=== PATIENT | male | born 1980 | race Caucasian/White ===

== ENCOUNTER 2020-10-17 12:11 | Emergency (ER) | payer BC ==
[2020-10-17] MEDS ORDERED: Sodium Chloride 0.9% 1,000 ML IV ONE (12:19)
[2020-10-17] MEDS ORDERED: Sodium Chloride 0.9% 10 ML Syringe FLUSH PRN (12:20)
[2020-10-17] MEDS ORDERED: Sodium Chloride 0.9% 2.5 ML Syringe FLUSH PRN (12:20)
[2020-10-17] MEDS ORDERED: Adenosine 6 MG/2 ML SDV IVPUSH ONE ×3 (12:29→12:55)
--- NOTE | 2020-10-17 12:29 | EDM.PDOC ---
ED HPI GENERAL MEDICAL PROBLEM - General Chief Complaint: Cardiovascular Problem Stated Complaint: CHEST PAIN Time Seen by Provider: 10/17/20 12:16 Source of Information: Reports: Patient History Limitations: Reports: No Limitations - History of Present Illness INITIAL COMMENTS - FREE TEXT/NARRATIVE: 40-year-old male past medical history hypertension presents for rapid heartbeat. Patient notes that he has been having some palpitations over the last couple of weeks and recently had his medication switched from lisinopril and amlodipine to metoprolol. He had been doing better but today experienced rapid heart rate. He laid down and lifted his legs and symptoms resolved. Symptoms unfortunately came back shortly afterwards and he was unable to get it stopped on his own. He does endorse a mild pain sensation to his left anterior ribs as well as some mild shortness of breath associated with a rapid heart rate. He denies lower extremity swelling or pain. He notes that he has follow-up with a lift slab operator coming up in the next week. No prior history of SVT left chest,ribs Pain Score (Numeric/FACES): 1 - Related Data Allergies Allergy/AdvReac Type Severity Reaction Status Date / Time No Known Allergies Allergy Verified 10/17/20 12:36 Home Meds: Home Meds Metoprolol Succinate 100 mg PO DAILY 10/17/20 [History] Metoprolol Tartrate 25 mg PO Q8H PRN #20 tablet 10/17/20 [Rx] ED ROS GENERAL - Review of Systems Review Of Systems: Comprehensive ROS is negative, except as noted in HPI. ED EXAM, GENERAL - Physical Exam Exam: See Below General Appearance: Alert, WD/WN, No Apparent Distress Throat/Mouth: Normal Voice, No Airway Compromise Head: Atraumatic, Normocephalic Neck: Normal Inspection Respiratory/Chest: No Respiratory Distress, Lungs Clear, Normal Breath Sounds, No Accessory Muscle Use Cardiovascular: Normal Peripheral Pulses, No Edema, Tachycardia Extremities: Normal Inspection Neurological: Alert Psychiatric: Normal Affect, Normal Mood Skin Exam: Warm, Dry, Intact, Normal Color #1 Interpretation EKG Date: 10/17/20 Time: 12:15 Rhythm: Other (SVT) Rate (Beats/Min): 184 Andrews: Normal QRS: Normal ST-T: Normal QT: Normal Comparison: NA - No Prior EKG EKG Interpretation Comments: SVT #2 Interpretation EKG Date: 10/17/20 Time: 12:47 Rhythm: NSR Rate (Beats/Min): 114 Andrews: Normal P-Wave: Present QRS: Normal ST-T: Normal QT: Normal WA/PQ Interval: 168 Comparison: Change From Previous EKG EKG Interpretation Comments: sinus tachycardia without ischemic changes #3 Interpretation EKG Date: 10/17/20 Time: 12:58 Rhythm: Other (sinus tach) Rate (Beats/Min): 112 Andrews: Normal P-Wave: Present QRS: Normal ST-T: Normal QT: Normal WA/PQ Interval: 167 Comparison: Change From Previous EKG EKG Interpretation Comments: sinus tachycardia #4 Interpretation EKG Date: 10/17/20 Time: 13:06 Rhythm: NSR Rate (Beats/Min): 101 Andrews: Normal P-Wave: Present QRS: Normal ST-T: Normal QT: Normal WA/PQ Interval: 182 EKG Interpretation Comments: Sinus tachycardia no ischemic changes Course - Vital Signs Last Recorded V/S: Last Vital Signs Temp 97 F 10/17/20 12:33 Pulse 111 H 10/17/20 12:59 Resp 17 10/17/20 12:59 BP 150/93 H 10/17/20 12:59 Pulse Ox 96 10/17/20 12:59 - Orders/Labs/Meds Orders: Active Orders 24 hr Category Date Time Status Cardiac Monitoring [RC] . DIRECTED Care 10/17/20 12:20 Active EKG 12 Lead [EKG Documentation Completion] [RC] STAT Care 10/17/20 13:11 Active EKG 12 Lead [EKG Documentation Completion] [RC] STAT Care 10/17/20 13:12 Active EKG 12 Lead [EKG Documentation Completion] [RC] STAT Care 10/17/20 13:12 Active Sodium Chloride 0.9% [Saline Flush] Med 10/17/20 12:20 Active 10 ml FLUSH ASDIRECTED PRN Sodium Chloride 0.9% [Saline Flush] Med 10/17/20 12:20 Active 2.5 ml FLUSH ASDIRECTED PRN Saline Lock Insert [OM.PC] Stat Oth 10/17/20 12:20 Ordered Medication Orders Sodium Chloride (Sodium Chloride 0.9% 10 Ml Syringe) 10 ml FLUSH ASDIRECTED PRN PRN Reason: Keep Vein Open Last Admin: 10/17/20 12:33 Dose: 10 ml Documented by: [id number] Sodium Chloride (Sodium Chloride 0.9% 2.5 Ml Syringe) 2.5 ml FLUSH ASDIRECTED PRN PRN Reason: Keep Vein Open Last Admin: 10/17/20 12:34 Dose: 2.5 ml Documented by: [id number] Labs: Laboratory Tests 10/17/20 10/17/20 Range/Units 12:22 12:22 WBC 8.93 (4.0-11.0) K/uL RBC 5.51 (4.50-5.90) M/uL Hgb 16.6 (13.0-17.0) g/dL Hct 47.4 (38.0-50.0) % MCV 86.0 (80.0-98.0) fL MCH 30.1 (27.0-32.0) pg MCHC 35.0 (31.0-37.0) g/dL RDW Std Deviation 40.2 (28.0-62.0) fl RDW Coeff of Yenny 13 (11.0-15.0) % Plt Count 314 (150-400) K/uL MPV 9.70 (7.40-12.00) fL Neut % (Auto) 46.3 L (48.0-80.0) % Lymph % (Auto) 35.6 (16.0-40.0) % Kings % (Auto) 12.9 (0.0-15.0) % Eos % (Auto) 4.8 (0.0-7.0) % Baso % (Auto) 0.4 (0.0-1.5) % Neut # (Auto) 4.1 (1.4-5.7) K/uL Lymph # (Auto) 3.2 H (0.6-2.4) K/uL Kings # (Auto) 1.2 H (0.0-0.8) K/uL Eos # (Auto) 0.4 (0.0-0.7) K/uL Baso # (Auto) 0.0 (0.0-0.1) K/uL Nucleated RBC % 0.0 /100WBC Nucleated RBCs # 0 K/uL Sodium 137 (136-148) mmol/L Potassium 3.7 (3.5-5.1) mmol/L Chloride 103 (98-107) mmol/L Carbon Dioxide 25.1 (21.0-32.0) mmol/L BUN 11 (7.0-18.0) mg/dL Creatinine 1.2 (0.8-1.3) mg/dL Est Cr Clr Drug Dosing 89.81 mL/min Estimated GFR (MDRD) > 60.0 ml/min Glucose 109 H (74-106) mg/dL Calcium 8.9 (8.5-10.1) mg/dL Total Bilirubin 1.2 H (0.2-1.0) mg/dL AST 38 H (15-37) IU/L ALT 63 (14-63) IU/L Alkaline Phosphatase 96 (46-116) U/L Troponin I < 0.050 (0.000-0.056) ng/mL Total Protein 7.9 (6.4-8.2) g/dL Albumin 4.2 (3.4-5.0) g/dL Globulin 3.7 (2.6-4.0) g/dL Albumin/Globulin Ratio 1.1 (0.9-1.6) TSH 3rd Generation 2.32 (0.36-3.74) uIU/mL Meds: Medications Generic Name Dose Route Start Last Admin Trade Name Freq PRN Reason Stop Dose Admin Sodium Chloride 10 ml 10/17/20 12:20 10/17/20 12:33 Sodium Chloride 0.9% 10 Ml Syringe FLUSH 10 ml ASDIRECTED PRN Administration Keep Vein Open Sodium Chloride 2.5 ml 10/17/20 12:20 10/17/20 12:34 Sodium Chloride 0.9% 2.5 Ml Syringe FLUSH 2.5 ml ASDIRECTED PRN Administration Keep Vein Open Discontinued Medications Generic Name Dose Route Start Last Admin Trade Name Freq PRN Reason Stop Dose Admin Adenosine 6 mg 10/17/20 12:29 10/17/20 12:39 Adenosine 6 Mg/2 Ml Sdv IVPUSH 10/17/20 12:30 6 mg NOW ONE Administration Adenosine 12 mg 10/17/20 12:29 10/17/20 12:44 Adenosine 6 Mg/2 Ml Sdv IVPUSH 10/17/20 12:30 12 mg NOW ONE Administration Adenosine Confirm 10/17/20 12:31 10/17/20 12:48 Adenosine 6 Mg/2 Ml Sdv Administered 10/17/20 12:32 Not Given Dose 12 mg .ROUTE .STK-MED ONE Adenosine 12 mg 10/17/20 12:55 10/17/20 12:57 Adenosine 6 Mg/2 Ml Sdv IVPUSH 10/17/20 12:56 12 mg NOW ONE Administration Sodium Chloride 1,000 mls @ 999 mls/hr 10/17/20 12:19 10/17/20 12:32 Normal Saline IV 10/17/20 13:19 999 mls/hr STAT ONE Administration Metoprolol Tartrate 5 mg 10/17/20 12:44 10/17/20 12:50 Metoprolol Tartrate 5 Mg/5 Ml Sdv IVPUSH 10/17/20 12:45 5 mg ONETIME ONE Administration - Re-Assessments/Exams Free Text/Narrative Re-Assessment/Exam: 10/17/20 12:28 Patient's EKG and symptoms are most consistent with supraventricular tachycardia. I trialed a Valsalva maneuver which was unsuccessful. We will give adenosine and reassess. 10/17/20 12:48 Patient underwent chemical cardioversion with adenosine 6 mg with return to sinus tachycardia to 120s. Unfortunately roughly 30 seconds after cardioversion patient went back into SVT with rates in the 180s. Adenosine 12 mg was given and patient went back into sinus tachycardia 120s. Will give 5 mg of metoprolol and continue IV fluid bolus. 10/17/20 12:55 Patient lasted roughly 5 minutes but went back into SVT. He was given 5 mg of metoprolol. Will trial adenosine 12 mg 1 more time. 10/17/20 13:00 Patient cardioverted to sinus tachycardia after 3rd dose of adenosine; will continue fluids and obs for repeated episode SVT. 10/17/20 13:32 Labs are all unremarkable. We will continue observation as I would like to observe patient following his cardioversion. 10/17/20 13:49 Patient remains in normal sinus rhythm with a rate of 100-110. Patient does note that his baseline heart rate runs in the low 100s. Will ops until 3 PM and if patient does not return to SVT will discharge with a prescription for metoprolol 25 mg instant release. Patient is planning on following up with his lift slab operator shortly. 10/17/20 14:46 Patient remains in normal sinus rhythm. Will discharge. Return precautions discussed. Departure - Departure Time of Disposition: 14:46 Disposition: Home, Self-Care 01 Condition: Good Clinical Impression: SVT (supraventricular tachycardia) Prescriptions: Metoprolol Tartrate 25 mg PO Q8H PRN #20 tablet PRN Reason: Tachycardia Instructions: Supraventricular Tachycardia, Adult Forms: ED Department Discharge Additional Instructions: He presented today in an abnormal heart rhythm called supraventricular tachycardia. You were given medications to slow your heart down. I have also sent a prescription called metoprolol 25 mg instant release to your pharmacy. This can be taken on top of the metoprolol that you take on a daily basis if your heart rate is elevated. You can also try the Valsalva maneuvers that we talked about like bearing down as if you are about to have a bowel movement. If your heart rate remains elevated for more than 20 minutes then you should come to the emergency department. If your having chest pain or difficulty breathing you should just come immediately to the emergency department. Follow-up with your lift slab operator! The following information is given to patients seen in the emergency department who are being discharged to home. This information is to outline your options for follow-up care. We provide all patients seen in our emergency department with a follow-up referral. The need for follow-up, as well as the timing and circumstances, are variable depending upon the specifics of your emergency department visit. If you don't have a primary care physician on staff, we will provide you with a referral. We always advise you to contact your personal physician following an emergency department visit to inform them of the circumstance of the visit and for follow-up with them and/or the need for any referrals to a consulting specialist. The emergency department will also refer you to a specialist when appropriate. This referral assures that you have the opportunity for follow-up care with a specialist. All of these measure are taken in an effort to provide you with optimal care, which includes your follow-up. Under all circumstances we always encourage you to contact your private physician who remains a resource for coordinating your care. When calling for follow-up care, please make the office aware that this follow-up is from your recent emergency room visit. If for any reason you are refused follow-up, please contact the [facility] Emergency Department at and asked to speak to the emergency department charge nurse. Please follow up with your primary care physician. If you do not have a primary care physician, see below: [facility] [address], [place] [address] [facility] [address] [place] [address] [facility] [address] [place] [address] Critical Care Note - Critical Care Note Total Time (mins): 35 Sepsis Event Note (ED) - Focused Exam Vital Signs: Vital Signs Temp Pulse Pulse Resp BP BP Pulse Ox 10/17/20 12:59 111 H 17 150/93 H 96 10/17/20 12:50 116 H 109 H 17 156/103 H 157/102 H 95 10/17/20 12:47 118 H 17 156/103 H 97 10/17/20 12:43 188 H 18 183/126 H 96 10/17/20 12:33 97 F 183 H 20 118/68 96 - My Orders Last 24 Hours: My Active Orders 10/17/20 13:11 EKG 12 Lead [EKG Documentation Completion] [RC] STAT 10/17/20 13:12 EKG 12 Lead [EKG Documentation Completion] [RC] STAT EKG 12 Lead [EKG Documentation Completion] [RC] STAT - Assessment/Plan Last 24 Hours: My Active Orders 10/17/20 13:11 EKG 12 Lead [EKG Documentation Completion] [RC] STAT 10/17/20 13:12 EKG 12 Lead [EKG Documentation Completion] [RC] STAT EKG 12 Lead [EKG Documentation Completion] [RC] STAT
[2020-10-17] MEDS ORDERED: Adenosine 6 MG/2 ML SDV ONE (12:31)
[2020-10-17] MEDS ORDERED: Metoprolol Tartrate 5 MG/5 ML SDV IVPUSH ONE (12:44)
--- NOTE | 2020-10-17 13:05 | CR ---
INDICATION: Chest pain. TECHNIQUE: Single view. FINDINGS: Heart size is within normal limits for AP technique. The lungs are free of infiltrate. There is no pulmonary edema. No significant pleural fluid is seen. IMPRESSION: No acute infiltrate or pulmonary edema is seen. Dictated by Bradley Pressley MD @ Oct 17 2020 1:01PM Signed by Dr. Bradley Pressley @ Oct 17 2020 1:02PM
[2020-10-17 13:12] LABS: BLOOD UREA NITROGEN,BUN 11 mg/dL (7.0-18.0); CARBON DIOXIDE,CO2 25.1 mmol/L (21.0-32.0); CHLORIDE,CL 103 mmol/L (98-107); GLUCOSE RANDOM 109 mg/dL (74-106); POTASSIUM,K 3.7 mmol/L (3.5-5.1); SODIUM,NA 137 mmol/L (136-148)
== END 2020-10-17 14:53 | disposition home or self-care (01) ==
LOC: MW.ED 12:11
DX: I47.1 Supraventricular tachycardia (principal); I10 Essential (primary) hypertension; Z79.899 Other long term (current) drug therapy
CPT/HCPCS: 36415; 71045; 80053; 84443; 84484; 85025; 93005; 96374; 99285; J0153; J3490; J7030; 99291